=== PATIENT | female | born 1960 | race Caucasian/White ===

== ENCOUNTER 2016-06-28 18:28 | Observation (INO) | payer OTHER, BC ==
[2016-06-28] MEDS ORDERED: Ondansetron 4 MG/2 ML SDV IV PRN (22:13)
[2016-06-28] MEDS ORDERED: Ondansetron 4 MG Tab.DIS PO PRN (22:13)
[2016-06-28] MEDS ORDERED: Polyethylene Glycol 3350 Powder 17 GM Packet PO PRN (22:13)
[2016-06-28] MEDS ORDERED: Sodium Chloride 0.9% 1,000 ML IV SCH (22:30)
[2016-06-28] MEDS ORDERED: traMADol 50 MG Tab PO SCH (22:30)
[2016-06-28] MEDS ORDERED: traMADol 50 MG Tab ONE (22:42)
[2016-06-28] MEDS: traMADol 50 MG Tab PO PRN (22:45)
[2016-06-29] MEDS ORDERED: Meclizine 25 MG Tab PO PRN (01:45)
[2016-06-29] MEDS ORDERED: Levothyroxine 150 MCG Tab PO SCH (07:30)
[2016-06-29] MEDS ORDERED: metFORMIN 500 MG Tab PO SCH (08:00)
--- NOTE | 2016-06-29 08:18 | CR ---
INDICATION: Trauma. Broke fall from standing position. Pain left elbow. LEFT ELBOW: Frontal and lateral views of the left elbow were obtained. A definite displaced fracture site or joint effusion or other significant bone or joint abnormality was not identified, except to note some minimal spurring both medially and laterally off the humeral condyles more prominent medially, likely on the basis of previous minimal trauma. IMPRESSION: No acute fracture or dislocation. MTDD
[2016-06-29] MEDS: traMADol 50 MG Tab PO PRN (08:20)
--- NOTE | 2016-06-29 08:30 | CT ---
INDICATION: Head trauma. Fall from standing. Occipital trauma. CT HEAD WITHOUT CONTRAST: Serial contiguous 2.5 and 5-mm sections were obtained through the brain without contrast and revealed the paranasal sinuses and mastoid air cells to be well aerated. A cranial fracture site was not identified. There is a small cephalohematoma suggested posteroparietal on the left. No shift of midline structures, ventricular abnormalities, or definite abnormal areas of density were identified - there is question of a tiny lacunar infarct at the left basal ganglia, however. No bleeding site or hematoma was seen. IMPRESSION: Except for suggestion of a tiny lacunar infarct at the caudal aspect of the basal ganglia, normal CT brain. Total Exam DLP = 949.36 mGy-cm. MTDD
--- NOTE | 2016-06-29 08:32 | CT ---
INDICATION: Head trauma. Fall from standing. Occipital trauma. CT CERVICAL SPINE: Spiral 2.5-mm axial sections were obtained through the cervical spine without contrast axially, with sagittal and coronal reconstructions. Examination date is 06/28/2016. Findings are compared with previous study of 03/04/2014. The posterior arch of C1 is incomplete, most likely on the basis of developmental anomaly. The atlas and axis were otherwise intact, including the odontoid process. Vertebral body and for the most part disk spaces appear to be fairly well maintained with slightly decreased disk space at C5-6. At C5-6 there are changes at the uncinate joints, left greater than right, with mild impingement on the neural foramina, left greater than right. No evidence of a fracture or dislocation was seen. Prevertebral space and bone density appear to be normal. IMPRESSION: 1. No acute fracture or dislocation. 2. 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 3. Degenerative changes and disk disease with slight impingement on neural foramina C5-6. Report was called to Dr. Pickard at 1935 hours, 06/28/2016. Total Exam DLP = 482.36 mGy-cm. MTDD
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
--- NOTE | 2016-06-29 08:46 | PCM.SN ---
- Free Text/Narrative Note: Vision doing better this morning with less headache. Will dizziness. CT head shows no acute changes. CT of the neck shows no acute changes. We'll discharge to home.
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
[2016-06-29] MEDS ORDERED: atorvaSTATin 20 MG Tab PO SCH (09:00)
[2016-06-29 19:54] VITALS: BP 114/57
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
== END 2016-06-29 11:00 | disposition home or self-care (01) ==
LOC: FB.ED 18:28 → FB.MS 22:13 → FB.ED 22:13
PROVIDERS: ADMIT Emergency Medicine; ATTEND Family Medicine
DX: S06.0X9A Concussion with loss of consciousness of unspecified duration, initial encounter (principal); E78.00 Pure hypercholesterolemia, unspecified; E11.9 Type 2 diabetes mellitus without complications; E03.9 Hypothyroidism, unspecified; F32.9 Major depressive disorder, single episode, unspecified; K21.9 Gastro-esophageal reflux disease without esophagitis; F41.9 Anxiety disorder, unspecified; E66.9 Obesity, unspecified; Z68.34 Body mass index [BMI] 34.0-34.9, adult; Z88.0 Allergy status to penicillin; Z79.899 Other long term (current) drug therapy; Z88.8 Allergy status to other drugs, medicaments and biological substances; Z90.49 Acquired absence of other specified parts of digestive tract; Z90.710 Acquired absence of both cervix and uterus; Y93.89 Activity, other specified; W22.01XA Walked into wall, initial encounter; F17.210 Nicotine dependence, cigarettes, uncomplicated; Z98.890 Other specified postprocedural states; Z79.84 Long term (current) use of oral hypoglycemic drugs
CPT/HCPCS: 36415; 70450; 72125; 73080; 80053; 80305; 81001; 82962; 85025; 99285; A9270; G0378

== ENCOUNTER 2017-01-04 13:25 | Emergency (ER) | payer BC, OTHER ==
[2017-01-04] MEDS ORDERED: diphenhydrAMINE 50 MG/ML SDV IM ONE (13:38)
[2017-01-04] MEDS ORDERED: Triamcinolone Acetonide 40 MG/ML 1 ML MDV IM ONE (13:38)
[2017-01-04 13:45] VITALS: BP 135/72
--- NOTE | 2017-01-05 02:07 | ER ---
DATE SEEN: 01/04/2017 REASON FOR VISIT: Bee sting. HISTORY OF PRESENT ILLNESS: This is a 56-year-old female complaining of bee sting. She stepped on the bee on the left foot, it was about 30 minutes ago. She complains of feeling tight on the face and also fingers but denies any difficulty breathing or swallowing and no chest pain or wheezing. She has a history of allergy to bee sting several years ago, and she carries an EpiPen, but has not used it neither she has taken any Benadryl. REVIEW OF SYSTEMS: All other systems unremarkable. PAST MEDICAL HISTORY: Anxiety, depression, and hypothyroidism. ALLERGIES: Please see Epic. MEDICATIONS: Please see Epic. PHYSICAL EXAMINATION: GENERAL: She is afebrile and normotensive. VITAL SIGNS: Oxygenation 97% on room air. ENT: Negative. NECK: Supple. CHEST: Clear. CARDIOVASCULAR: Normal. IMPRESSION: Bee sting. PLAN: Kenalog and Benadryl IM. May use Benadryl at home. Return with any worsening symptoms. TIME SEEN: 1:45 p.m. /[id number] RACHEL/THOMAS
== END 2017-01-04 14:07 | disposition home or self-care (01) ==
LOC: FB.ED 13:25
DX: T63.441A Toxic effect of venom of bees, accidental (unintentional), initial encounter (principal); F41.9 Anxiety disorder, unspecified; F32.9 Major depressive disorder, single episode, unspecified; E03.9 Hypothyroidism, unspecified
CPT/HCPCS: 96372; 99281; J1200; J3301; 99283

== ENCOUNTER 2024-02-21 06:06 | Day surgery (SDC) | payer OTHER ==
[2024-02-21] MEDS ORDERED: Midazolam 1 MG/ML 2 ML SDV IV ONE (06:07)
[2024-02-21] MEDS ORDERED: Propofol 200 MG/20 ML SDV IV ONE (06:07)
[2024-02-21] MEDS ORDERED: fentaNYL 100 MCG/2 ML SDV IV ONE (06:07)
[2024-02-21] MEDS ORDERED: Sodium Chloride 0.9% 10 ML Syringe FLUSH PRN (06:15)
[2024-02-21 06:43] VITALS: BP 124/67; PULSE 90
[2024-02-21] MEDS: Lactated Ringers 1,000 ML IV SCH (07:08)
[2024-02-21] MEDS: Simethicone Drops 40 MG/0.6 ML 30 ML Bottle ONE (07:35)
== END 2024-02-21 08:40 | disposition home or self-care (01) ==
LOC: FB.SDS 06:06
PROVIDERS: ATTEND Surgery
DX: Z12.11 Encounter for screening for malignant neoplasm of colon (principal); K63.5 Polyp of colon; Z86.0100 Personal history of colon polyps, unspecified; Z80.0 Family history of malignant neoplasm of digestive organs; E11.9 Type 2 diabetes mellitus without complications; F32.A Depression, unspecified; F41.9 Anxiety disorder, unspecified; F17.210 Nicotine dependence, cigarettes, uncomplicated; Z79.84 Long term (current) use of oral hypoglycemic drugs; Z79.899 Other long term (current) drug therapy; Z88.0 Allergy status to penicillin; Z88.5 Allergy status to narcotic agent
CPT/HCPCS: 00811; 88305; A9270-GY; J2250; J2704; J3010; J7120

== ENCOUNTER 2024-10-22 14:04 | Emergency (ER) | payer OTHER ==
[2024-10-22 14:40] LABS: BASOPHILS PERCENT AUTO 0.4 % (0.2-1.5); EOSINOPHILS ABSOLUTE AUTO 0.1 x10-3/uL (0.0-0.8); EOSINOPHILS PERCENT AUTO 1.2 % (0.6-8.1); HEMATOCRIT 38.9 % (34.2-48.2); LYMPHOCYTES ABSOLUTE AUTO 1.2 x10-3/uL (1.0-4.4); LYMPHOCYTES PERCENT AUTO 20.9 % (18.4-52.1); MEAN CORPUSCULAR HEMOGLOBIN 28.7 pg (23.9-33.9); MEAN CORPUSCULAR HGB CONC 33.4 g/dL (31.9-34.8); MEAN CORPUSCULAR VOLUME 85.9 fL (76.7-100.5); MEAN PLATELET VOLUME 7.3 fL (7.1-12.4); MONOCYTES ABSOLUTE AUTO 0.5 x10-3/uL (0.3-1.0); MONOCYTES PERCENT AUTO 7.9 % (4.4-15.7); NEUTROPHILS ABSOLUTE AUTO 4.1 x10-3/uL (1.5-6.3); NEUTROPHILS PERCENT AUTO 69.6 % (30.8-76.2); PLATELET COUNT,PLT 240 x10(3)uL (151-488); RED BLOOD CELL COUNT 4.52 x10(6)uL (3.60-5.20); RED CELL DISTRIBUTION WIDTH 15.5 % (12.3-16.5); WHITE BLOOD CELL COUNT,WBC 5.8 x10-3/uL (3.0-10.3)
[2024-10-22 14:44] LABS: BLOOD UREA NITROGEN,BUN 19 mg/dL (7-18); BUN/CREATININE RATIO 23.8 (9-20); CALCIUM 9.2 mg/dL (8.6-10.2); CARBON DIOXIDE,CO2 30 mmol/L (21-32); CHLORIDE,CL 103 mmol/L (100-110); CREATININE 0.8 mg/dL (0.55-1.02); ESTIMATED GFR 82 mL/min (>60); GLUCOSE RANDOM 91 mg/dL (80-116); POTASSIUM,K 3.9 mmol/L (3.5-5.3); SODIUM,NA 138 mmol/L (135-145)
[2024-10-22 14:50] LABS: ALANINE AMINOTRANSFERASE,ALT 30 U/L (12-36); ALBUMIN 3.6 g/dL (3.2-4.6); ALKALINE PHOSPHATASE 130 IU/L (56-112); ASPARTATE AMNIOTRANSFERASE,AST 12 IU/L (5-25); PROTEIN TOTAL,TP 7.4 g/dL (6.0-8.0)
[2024-10-22] MEDS: Sodium Chloride 0.9% 1,000 ML IV ONE (15:00)
[2024-10-22 16:31] VITALS: BP 126/51; PULSE 93
[2024-10-22 16:32] LABS: BILIRUBIN,URINE NEGATIVE (NEGATIVE); GLUCOSE,URINE NORMAL (NORMAL); KETONES,URINE NEGATIVE (NEGATIVE); LEUKOCYTE ESTERASE,URINE NEGATIVE (NEGATIVE); NITRITE,URINE NEGATIVE (NEGATIVE); OCCULT BLOOD,URINE NEGATIVE (NEGATIVE); PROTEIN,URINE NEGATIVE (NEGATIVE); UROBILINOGEN,URINE NORMAL (NEGATIVE)
[2024-10-22 16:33] LABS: APPEARANCE,URINE CLEAR (CLEAR); COLOR,URINE YELLOW (YELLOW)
== END 2024-10-22 17:00 | disposition home or self-care (01) ==
LOC: FB.ED 14:04
DX: T67.5XXA Heat exhaustion, unspecified, initial encounter (principal); E11.40 Type 2 diabetes mellitus with diabetic neuropathy, unspecified; E03.9 Hypothyroidism, unspecified; E66.9 Obesity, unspecified; E78.00 Pure hypercholesterolemia, unspecified; J44.9 Chronic obstructive pulmonary disease, unspecified; M19.90 Unspecified osteoarthritis, unspecified site; Z88.8 Allergy status to other drugs, medicaments and biological substances; Z91.030 Bee allergy status; Z88.0 Allergy status to penicillin; Z88.1 Allergy status to other antibiotic agents; Z79.899 Other long term (current) drug therapy; Z79.51 Long term (current) use of inhaled steroids; Z79.84 Long term (current) use of oral hypoglycemic drugs; Z90.49 Acquired absence of other specified parts of digestive tract; Z90.710 Acquired absence of both cervix and uterus
CPT/HCPCS: 36415; 80053; 81003; 84484; 85025; 93005; 93010; 96360; 96361; 99283; 99285; J7030

== ENCOUNTER 2024-11-15 18:42 | Emergency (ER) | payer OTHER ==
[2024-11-15 18:52] VITALS: BP 134/51; PULSE 99
[2024-11-15] MEDS: Ketorolac 30 MG/ML SDV IM ONE (19:37)
== END 2024-11-15 19:45 | disposition home or self-care (01) ==
LOC: FB.ED 18:42
DX: S93.601A Unspecified sprain of right foot, initial encounter (principal); E78.00 Pure hypercholesterolemia, unspecified; E66.9 Obesity, unspecified; E03.9 Hypothyroidism, unspecified; E11.40 Type 2 diabetes mellitus with diabetic neuropathy, unspecified; F17.200 Nicotine dependence, unspecified, uncomplicated; J44.9 Chronic obstructive pulmonary disease, unspecified; M19.90 Unspecified osteoarthritis, unspecified site; Z88.0 Allergy status to penicillin; Z88.8 Allergy status to other drugs, medicaments and biological substances; Z91.030 Bee allergy status; Z88.1 Allergy status to other antibiotic agents; Z79.899 Other long term (current) drug therapy; Z79.890 Hormone replacement therapy; Z79.82 Long term (current) use of aspirin; Z79.51 Long term (current) use of inhaled steroids; Z90.49 Acquired absence of other specified parts of digestive tract; Z68.34 Body mass index [BMI] 34.0-34.9, adult; X50.1XXA Overexertion from prolonged static or awkward postures, initial encounter
CPT/HCPCS: 73630; 96372; 99283; J1885

== ENCOUNTER 2024-12-28 16:48 | Emergency (ER) | payer OTHER ==
[2024-12-28 17:20] VITALS: BP 111/57; PULSE 104
[2024-12-28] MEDS: Acetaminophen/oxyCODONE 325-5 MG Tab PO STA (18:02)
[2024-12-28] MEDS: Ketorolac 30 MG/ML SDV IM STA (18:02)
== END 2024-12-28 18:10 | disposition home or self-care (01) ==
LOC: FB.ED 16:48
DX: M43.6 Torticollis (principal); Z88.0 Allergy status to penicillin; Z88.5 Allergy status to narcotic agent; Z79.899 Other long term (current) drug therapy; Z79.890 Hormone replacement therapy; Z90.49 Acquired absence of other specified parts of digestive tract; Z90.710 Acquired absence of both cervix and uterus
CPT/HCPCS: 96372; 99283; A9270; J1885

== ENCOUNTER 2025-01-24 06:17 | Emergency (ER) | payer OTHER ==
[2025-01-24 06:35] VITALS: BP 135/105; PULSE 78
[2025-01-24 07:27] LABS: BASOPHILS ABSOLUTE AUTO 0.0 x10-3/uL (0.0-0.1); BASOPHILS PERCENT AUTO 0.4 % (0.2-1.5); EOSINOPHILS ABSOLUTE AUTO 0.1 x10-3/uL (0.0-0.8); EOSINOPHILS PERCENT AUTO 1.6 % (0.6-8.1); LYMPHOCYTES ABSOLUTE AUTO 1.2 x10-3/uL (1.0-4.4); LYMPHOCYTES PERCENT AUTO 23.2 % (18.4-52.1); MEAN PLATELET VOLUME 7.5 fL (7.1-12.4); MONOCYTES ABSOLUTE AUTO 0.4 x10-3/uL (0.3-1.0); MONOCYTES PERCENT AUTO 7.7 % (4.4-15.7); NEUTROPHILS ABSOLUTE AUTO 3.5 x10-3/uL (1.5-6.3); NEUTROPHILS PERCENT AUTO 67.1 % (30.8-76.2); PLATELET COUNT,PLT 217 x10(3)uL (151-488); RED BLOOD CELL COUNT 4.34 x10(6)uL (3.60-5.20); RED CELL DISTRIBUTION WIDTH 15.4 % (12.3-16.5); WHITE BLOOD CELL COUNT,WBC 5.2 x10-3/uL (3.0-10.3)
[2025-01-24 07:33] LABS: BLOOD UREA NITROGEN,BUN 14 mg/dL (7-18); CARBON DIOXIDE,CO2 31 mmol/L (21-32); CHLORIDE,CL 104 mmol/L (100-110); CREATININE 0.7 mg/dL (0.55-1.02); ESTIMATED GFR 96 mL/min (>60); GLUCOSE RANDOM 250 mg/dL (80-116); POTASSIUM,K 4.5 mmol/L (3.5-5.3); SODIUM,NA 138 mmol/L (135-145)
[2025-01-24 07:39] LABS: A/G RATIO 1.0; ALANINE AMINOTRANSFERASE,ALT 23 U/L (12-36); ASPARTATE AMNIOTRANSFERASE,AST 9 IU/L (5-25); BILIRUBIN TOTAL 0.6 mg/dL (0.1-1.3); PROTEIN TOTAL,TP 6.9 g/dL (6.0-8.0)
[2025-01-24 07:46] LABS: SEDIMENTATION RATE MANUAL 18 mm/hr (0-20)
[2025-01-24] MEDS: Prochlorperazine 10 MG/2 ML SDV IVPUSH ONE (07:47)
[2025-01-24] MEDS: Sodium Chloride 0.9% 10 ML Syringe FLUSH PRN (07:48)
[2025-01-24] MEDS: Iopamidol 755 Mg/ML 100 ML Bottle IV SCH (08:46)
[2025-01-24 08:58] LABS: GLUCOSE,URINE NORMAL (NORMAL); OCCULT BLOOD,URINE NEGATIVE (NEGATIVE)
[2025-01-24 09:00] LABS: APPEARANCE,URINE CLEAR (CLEAR)
== END 2025-01-24 11:03 | disposition home or self-care (01) ==
LOC: FB.ED 06:17
DX: M79.7 Fibromyalgia (principal); R51.9 Headache, unspecified; R42 Dizziness and giddiness; E78.00 Pure hypercholesterolemia, unspecified; J44.9 Chronic obstructive pulmonary disease, unspecified; E11.9 Type 2 diabetes mellitus without complications; E03.9 Hypothyroidism, unspecified; F17.200 Nicotine dependence, unspecified, uncomplicated; Z91.030 Bee allergy status; Z88.1 Allergy status to other antibiotic agents; Z88.0 Allergy status to penicillin; Z88.8 Allergy status to other drugs, medicaments and biological substances; Z79.899 Other long term (current) drug therapy; Z79.890 Hormone replacement therapy; Z79.84 Long term (current) use of oral hypoglycemic drugs
CPT/HCPCS: 36415; 70496; 70498; 80053; 81003; 83735; 84484; 85025; 85651; 86140; 93005; 96361; 96374; 96375; 99284; A9270; J0780; J3360; J7030; Q9967